=== PATIENT | female | born 1970 ===

== ENCOUNTER → 2021-09-16 | Outpatient (REF) ==
--- NOTE | 2021-09-16 12:01 | REP ---
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 TECHNIQUE: PA and lateral. FINDINGS: The mediastinum and cardiac silhouette are normal. The lung campbell are clear and without acute consolidation, effusion, or pneumothorax. The skeletal structures are intact and normal. IMPRESSION: No acute cardiopulmonary process. <Electronically signed by Raffy Manzo > 09/16/21 [id number]
== END ==
LOC: M RAD 11:30
PROVIDERS: ATTEND Nurse Practitioner Adult Health
DX: Z02.89 Encounter for other administrative examinations (principal); R76.11 Nonspecific reaction to tuberculin skin test without active tuberculosis